=== PATIENT | female | born 1975 | race Caucasian/White ===

== ENCOUNTER 2018-05-05 18:04 | Emergency (ER) | payer OTHER ==
[~2018-05-05] VITALS: Ht 154.9 cm; Wt 79.4 kg
[2018-05-05] MEDS ORDERED: PROZAC20 MG PO (18:16)
[2018-05-05] MEDS ORDERED: ROBAXIN 750 MG750 M1 PO (19:41)
[2018-05-05] MEDS ORDERED: NAPROSYN500 MG PO (19:41)
[2018-05-05] MEDS ORDERED: HYDROCODONE-AP1 EAC6 PO (19:41)
[2018-05-05 19:53] VITALS: BP 141/78
== END 2018-05-05 19:54 | disposition home or self-care (01) ==
LOC: M.ERS 18:04
DX: M54.2 Cervicalgia (principal); M54.5 Low back pain; M54.6 Pain in thoracic spine; I10 Essential (primary) hypertension; M79.7 Fibromyalgia; Z91.041 Radiographic dye allergy status; Z88.8 Allergy status to other drugs, medicaments and biological substances; Z86.2 Personal history of diseases of the blood and blood-forming organs and certain disorders involving the immune mechanism

== ENCOUNTER 2018-05-11 07:56 | Emergency (ER) | payer OTHER ==
[~2018-05-11] VITALS: Ht 154.9 cm; Wt 86.2 kg
[~2018-05-11 07:56] MED LIST: HYDROCODONE-AP1 EAC6 PO; NAPROSYN500 MG PO; PROZAC20 MG PO; ROBAXIN 750 MG750 M1 PO
[2018-05-11 08:14] LABS: URINE BLOOD 3+ (Negative); URINE CLARITY CLOUDY; URINE COLOR BROWN; URINE GLUCOSE-RANDOM NEGATIVE (Negative); URINE KETONES TRACE (Negative); URINE LEUKOCYTES-REFLEX TRACE (Negative); URINE NITRITE-REFLEX NEGATIVE (Negative); URINE PROTEIN 3+ (Negative); URINE SPECIFIC GRAVITY 1.025 (1.005-1.030)
[2018-05-11 08:21] LABS: ABSOLUTE EOSINOPHILS 0.1 thou/uL (0.0-0.7); ABSOLUTE LYMPHOCYTES 2.3 thou/uL (0.8-5.3); ABSOLUTE MONOCYTES 0.6 thou/uL (0.0-1.2); ABSOLUTE NEUTROPHILS 6.9 thou/uL (1.6-8.1); BASOPHILS 0.2 %; EOSINOPHILS 1.4 %; HEMATOCRIT 30.9 % (37.0-47.0); HEMOGLOBIN 9.5 gm/dL (12.0-15.0); LYMPHOCYTES 22.9 %; MCHC 30.8 g/dL (28.0-37.0); MCV 71.6 fL (80.0-100.0); MPV 7.6 fl. (7.2-11.1); NUCLEATED RBCS 0 /100WBC; PLATELET COUNT* 445 thou/uL (150-400); POLYS 69.5 %; RBC 4.31 mil/uL (4.20-5.00); RDW-CV 17.7 % (10.5-14.5); WBC 9.9 thou/uL (4.0-11.0)
[2018-05-11 08:22] LABS: ICTOTEST (BILI CONFIRMATORY) Positive (Negative); URINE BILIRUBIN 1+ (Negative)
[2018-05-11 08:24] LABS: CALCIUM 8.4 mg/dL (8.5-10.1); CREATININE 0.6 mg/dL (0.6-1.3)
[2018-05-11 08:29] LABS: ALBUMIN 3.3 g/dL (3.4-5.0); TOTAL BILIRUBIN 0.3 mg/dL (<0.1-1.0); TOTAL PROTEIN 7.1 g/dL (6.4-8.2)
[2018-05-11 08:42] LABS: BACTERIA-REFLEX None Seen /HPF (None Seen); CASTS None Seen /LPF (None Seen); CRYSTALS None Seen /LPF (None Seen); MUCUS 0-3 Light strn/LPF (None Seen); SQUAMOUS >10 Many /LPF (0-3); URINE RBC >20 Many /HPF (0-2); URINE WBC-REFLEX 0-5 Rare /HPF (0-5)
[2018-05-11 09:02] LABS: PLATELET ESTIMATE INCREASED
[2018-05-11 09:04] LABS: POLYCHROMASIA Occasional
[2018-05-11 09:05] LABS: HYPOCHROMASIA 2+; MACROCYTES 1+; MICROCYTES 2+; OVALOCYTES Occasional
[2018-05-11] MEDS ORDERED: BACTRIM DS TAB1 EAC1 PO (09:45)
[2018-05-11] MEDS ORDERED: NORCO 5-325 TA1 EACH PO (09:46)
[2018-05-11] MEDS ORDERED: ZOFRAN ODT4 MG PO (09:46)
[2018-05-11 09:53] VITALS: BP 126/77
== END 2018-05-11 10:01 | disposition home or self-care (01) ==
LOC: M.ERS 07:56
PROVIDERS: Emergency Medicine Emergency Medical Services
DX: N12 Tubulo-interstitial nephritis, not specified as acute or chronic (principal); M54.31 Sciatica, right side; I10 Essential (primary) hypertension; M79.7 Fibromyalgia; Z88.8 Allergy status to other drugs, medicaments and biological substances; Z91.041 Radiographic dye allergy status

== ENCOUNTER 2018-06-12 10:36 | Emergency (ER) | payer OTHER ==
[~2018-06-12] VITALS: Ht 154.9 cm; Wt 83.9 kg
[~2018-06-12 10:36] MED LIST changes: +BACTRIM DS TAB1 EAC1 PO; +NORCO 5-325 TA1 EACH PO; +ZOFRAN ODT4 MG PO
[2018-06-12] MEDS ORDERED: LABETALOL HCL100 MG PO (10:50)
[2018-06-12] MEDS ORDERED: TRAZODONE HCL100 MG PO (10:50)
[2018-06-12 11:14] LABS: URINE BLOOD 3+ (Negative); URINE CLARITY CLOUDY; URINE COLOR YELLOW; URINE GLUCOSE-RANDOM NEGATIVE (Negative); URINE KETONES NEGATIVE (Negative); URINE LEUKOCYTES-REFLEX TRACE (Negative); URINE NITRITE-REFLEX NEGATIVE (Negative); URINE PROTEIN 3+ (Negative); URINE SPECIFIC GRAVITY 1.025 (1.005-1.030)
[2018-06-12 11:19] LABS: URINE BILIRUBIN 1+ (Negative)
[2018-06-12 11:20] LABS: ICTOTEST (BILI CONFIRMATORY) Negative (Negative)
[2018-06-12 11:21] LABS: MUCUS None Seen strn/LPF (None Seen); SQUAMOUS >10 Many /LPF (0-3); URINE RBC >20 Many /HPF (0-2)
[2018-06-12 11:22] LABS: CASTS None Seen /LPF (None Seen); CRYSTALS None Seen /LPF (None Seen); URINE WBC-REFLEX 0-5 Rare /HPF (0-5)
[2018-06-12 11:23] LABS: BACTERIA-REFLEX 1-9 Few /HPF (None Seen)
[2018-06-12 11:50] LABS: ABSOLUTE BASOPHILS 0.1 thou/uL (0.0-0.2); ABSOLUTE EOSINOPHILS 0.3 thou/uL (0.0-0.7); ABSOLUTE LYMPHOCYTES 1.9 thou/uL (0.8-5.3); ABSOLUTE MONOCYTES 0.6 thou/uL (0.0-1.2); ABSOLUTE NEUTROPHILS 6.1 thou/uL (1.6-8.1); BASOPHILS 0.7 %; HEMATOCRIT 32.4 % (37.0-47.0); HEMOGLOBIN 9.7 gm/dL (12.0-15.0); LYMPHOCYTES 21.6 %; MCH 21.5 pg (26.0-34.0); MCHC 30.1 g/dL (28.0-37.0); MCV 71.6 fL (80.0-100.0); MONOCYTES 6.5 %; NUCLEATED RBCS 0 /100WBC; PLATELET COUNT* 393 thou/uL (150-400); POLYS 68.2 %; RBC 4.52 mil/uL (4.20-5.00); RDW-CV 17.3 % (10.5-14.5); WBC 8.9 thou/uL (4.0-11.0)
[2018-06-12 12:04] LABS: CALCIUM 8.5 mg/dL (8.5-10.1); CREATININE 0.6 mg/dL (0.6-1.3); POTASSIUM 3.8 mmol/L (3.5-5.1)
[2018-06-12 12:07] LABS: ALBUMIN 3.3 g/dL (3.4-5.0); TOTAL BILIRUBIN 0.3 mg/dL (<0.1-1.0); TOTAL PROTEIN 7.3 g/dL (6.4-8.2)
[2018-06-12] MEDS ORDERED: NORCO 5-325 TA1 EACH PO (12:34)
[2018-06-12] MEDS ORDERED: CIPRO500 MG PO (12:34)
[2018-06-12] MEDS ORDERED: ZOFRAN ODT4 MG PO (12:34)
[2018-06-12 12:52] VITALS: BP 127/78
[2018-06-12 14:25] LABS: ANISOCYTOSIS 1+; PLATELET ESTIMATE ADEQUATE
[2018-06-12 14:26] LABS: MICROCYTES 2+
[2018-06-12 14:28] LABS: HYPOCHROMASIA 1+; OVALOCYTES Occasional
== END 2018-06-12 12:53 | disposition home or self-care (01) ==
LOC: M.ERS 10:36
PROVIDERS: Nurse Practitioner Family
DX: N20.0 Calculus of kidney (principal); N30.90 Cystitis, unspecified without hematuria; I10 Essential (primary) hypertension; M79.7 Fibromyalgia; M32.9 Systemic lupus erythematosus, unspecified; Z91.041 Radiographic dye allergy status; Z88.8 Allergy status to other drugs, medicaments and biological substances; Z86.2 Personal history of diseases of the blood and blood-forming organs and certain disorders involving the immune mechanism